=== PATIENT | male | born 1965 | race African-American/Black ===

== ENCOUNTER 2016-05-01 13:30 | Emergency (ER) | payer MEDICAID ==
[~2016-05-01] VITALS: Ht 177.8 cm; Wt 79.0 kg
[2016-05-01] MEDS ORDERED: KETOROLAC 60MG/2ML VIAL IM ONE (16:00)
[2016-05-01 16:02] VITALS: BP 127/76
== END 2016-05-01 16:50 | disposition home or self-care (01) ==
LOC: ER 14:17
DX: M25.562 Pain in left knee (principal); J45.909 Unspecified asthma, uncomplicated; F17.210 Nicotine dependence, cigarettes, uncomplicated; F12.10 Cannabis abuse, uncomplicated; Z88.8 Allergy status to other drugs, medicaments and biological substances; W10.8XXA Fall (on) (from) other stairs and steps, initial encounter; Y92.89 Other specified places as the place of occurrence of the external cause
CPT/HCPCS: 96372; 99283; J1885; L1830

== ENCOUNTER 2016-06-06 14:52 | Emergency (ER) | payer MEDICAID ==
[~2016-06-06] VITALS: Ht 177.8 cm; Wt 84.0 kg
[2016-06-06 22:15] VITALS: BP 124/61
[2016-06-06] MEDS ORDERED: KETOROLAC 60MG/2ML VIAL IM ONE (22:30)
== END 2016-06-06 22:56 | disposition left against medical advice (07) ==
LOC: ER 22:10
DX: M25.562 Pain in left knee (principal); M54.2 Cervicalgia; J45.909 Unspecified asthma, uncomplicated; F17.210 Nicotine dependence, cigarettes, uncomplicated; F12.10 Cannabis abuse, uncomplicated; Z88.8 Allergy status to other drugs, medicaments and biological substances
CPT/HCPCS: 99282

== ENCOUNTER 2016-06-07 03:27 | Emergency (ER) | payer MEDICAID ==
[~2016-06-07] VITALS: Ht 185.4 cm; Wt 79.0 kg
[2016-06-07] MEDS ORDERED: IPRATROPIUM/ALBUTEROL 0.5-3(2.5)MG/3ML NEB HHN ONE (07:45)
[2016-06-07 08:02] LABS: BASOPHILS % 1.4 % (0.0-2.0); EOSINOPHILS % 2.4 % (0.0-5.0); HEMATOCRIT. 44.4 % (42.0-52.0); HEMOGLOBIN. 14.6 g/dL (14.0-18.0); LYMPHOCYTES % 40.3 % (20.0-50.0); MEAN CORPUSCULAR HEMOGLOBIN 28.3 pg (28.0-32.0); MEAN CORPUSCULAR VOLUME 85.7 fL (80.0-94.0); MEAN PLATELET VOLUME 8.1 fl (7.4-10.4); MONOCYTES % 7.9 % (2.0-8.0); PLATELET 233 x1000/uL (130-400); RED BLOOD CELL COUNT 5.18 mill/uL (4.7-6.1); RED CELL DISTRIBUTION WIDTH 14.9 % (11.6-14.6); WHITE BLOOD COUNT 4.6 x1000/uL (4.5-11.0)
[2016-06-07 08:08] LABS: INR 1.1; PROTHROMBIN TIME 11.2 sec
[2016-06-07 08:14] LABS: ALANINE AMINOTRANSFERASE 24 IU/L (13-61); ANION GAP 11; CALCIUM 9.4 mg/dL (8.5-10.1); CARBON DIOXIDE 28 mEq/L (21-32); CHLORIDE 107 mEq/L (98-107); INDEX HEMOLYSI 1 (1-3); INDEX ICTERIC 1 (1-4); INDEX LIPEMIC 1 (1-3); LIPASE 181 IU/L (73-393); UREA NITROGEN BLOOD 22 mg/dL (7-21); eGFR > 60 mL/min (>60)
[2016-06-07 10:44] LABS: CLARITY URINE CLEAR (CLEAR); COLOR URINE YELLOW (YELLOW); GLUCOSE URINE NEGATIVE (NEGATIVE); KETONES URINE 1+ (NEGATIVE); LEUKOCYTE ESTERASE URINE NEGATIVE (NEGATIVE); NITRITE URINE NEGATIVE (NEGATIVE); OCCULT BLOOD URINE NEGATIVE (NEGATIVE); PROTEIN URINE NEGATIVE (NEGATIVE); SPECIFIC GRAVITY URINE 1.029 (1.005-1.030)
[2016-06-07 10:54] LABS: *AMPHETAMINES SCREEN URINE NEGATIVE (NEGATIVE); *BARBITURATES SCREEN URINE NEGATIVE (NEGATIVE); *BENZODIAZEPINES SCREEN URINE NEGATIVE (NEGATIVE); *COCAINE SCREEN URINE NEGATIVE (NEGATIVE); CANNABINOID URINE SCREEN PRESUMTIVE POSITIVE (NEGATIVE); ECSTASY MDMA SCREEN URINE NEGATIVE (NEGATIVE); METHADONE URINE SCREEN NEGATIVE (NEGATIVE); OPIATES URINE SCREEN NEGATIVE (NEGATIVE); PHENCYCLIDINE URINE SCREEN NEGATIVE (NEGATIVE)
[2016-06-07 13:20] VITALS: BP 126/72
== END 2016-06-07 15:00 | disposition left against medical advice (07) ==
LOC: ER 07:25
DX: B34.9 Viral infection, unspecified (principal); J45.909 Unspecified asthma, uncomplicated; F17.210 Nicotine dependence, cigarettes, uncomplicated; F12.10 Cannabis abuse, uncomplicated; Z88.8 Allergy status to other drugs, medicaments and biological substances
CPT/HCPCS: 36415; 71010; 80053; 80305; 81003; 83690; 85025; 85610; 93005; 94640; 99285; J7620

== ENCOUNTER 2016-08-12 22:21 | Emergency (ER) | payer SELFPAY ==
[~2016-08-12] VITALS: Ht 175.3 cm; Wt 80.0 kg
[2016-08-13] MEDS ORDERED: IBUPROFEN 600MG TABLET PO ONE (01:00)
[2016-08-13 02:45] VITALS: BP 96/66
== END 2016-08-13 02:45 | disposition home or self-care (01) ==
LOC: ER 22:21
DX: M25.562 Pain in left knee (principal); G89.29 Other chronic pain; M54.9 Dorsalgia, unspecified; M25.511 Pain in right shoulder; R03.0 Elevated blood-pressure reading, without diagnosis of hypertension; Z88.8 Allergy status to other drugs, medicaments and biological substances; F17.210 Nicotine dependence, cigarettes, uncomplicated
CPT/HCPCS: 99282

== ENCOUNTER 2016-11-16 03:43 | Emergency (ER) | payer MEDICAID ==
[~2016-11-16] VITALS: Ht 180.3 cm; Wt 74.0 kg
[2016-11-16 11:12] VITALS: BP 112/80
== END 2016-11-16 11:50 | disposition left against medical advice (07) ==
LOC: ER 03:43
DX: M54.2 Cervicalgia (principal); Z53.21 Procedure and treatment not carried out due to patient leaving prior to being seen by health care provider

== ENCOUNTER 2017-04-05 23:48 | Emergency (ER) | payer MEDICAID ==
[~2017-04-05] VITALS: Ht 180.3 cm; Wt 86.4 kg
[2017-04-06] MEDS ORDERED: KETOROLAC 60MG/2ML VIAL IM ONE (03:30)
[2017-04-06] MEDS ORDERED: DIAZEPAM 5 MG TABLET PO ONE (03:30)
[2017-04-06 05:20] VITALS: BP 124/88
== END 2017-04-06 06:28 | disposition home or self-care (01) ==
LOC: ER 23:48
DX: M62.838 Other muscle spasm (principal); M54.9 Dorsalgia, unspecified; G89.29 Other chronic pain; R20.0 Anesthesia of skin; F17.200 Nicotine dependence, unspecified, uncomplicated; F12.10 Cannabis abuse, uncomplicated
CPT/HCPCS: 99283; J1885; Z7610

== ENCOUNTER 2018-11-27 20:54 | Emergency (ER) | payer MEDICAID ==
[~2018-11-27] VITALS: Ht 180.3 cm; Wt 78.0 kg
[2018-11-27] MEDS ORDERED: SODIUM CHLORIDE 0.9% 1,000 ML IV ONE (23:36)
[2018-11-28 00:29] LABS: BASOPHILS % 0.7 % (0.0-2.0); EOSINOPHILS % 3.1 % (0.0-5.0); HEMATOCRIT. 38.1 % (42.0-52.0); HEMOGLOBIN. 12.6 g/dL (14.0-18.0); MEAN CORPUSCULAR HEMOGLOBIN 29.1 pg (28.0-32.0); MEAN CORPUSCULAR VOLUME 87.6 fL (80.0-94.0); MEAN PLATELET VOLUME 8.4 fl (7.4-10.4); MONOCYTES % 8.2 % (2.0-8.0); PLATELET 181 x1000/uL (130-400); RED BLOOD CELL COUNT 4.35 mill/uL (4.7-6.1); RED CELL DISTRIBUTION WIDTH 15.2 % (11.6-14.6)
[2018-11-28 00:30] LABS: CHLORIDE 109 mEq/L (98-107)
[2018-11-28 00:31] LABS: PROTHROMBIN TIME 10.6 sec (9.6-11.0)
[2018-11-28 03:45] VITALS: BP 118/70
== END 2018-11-28 03:50 | disposition home or self-care (01) ==
LOC: ER 20:54
DX: K62.5 Hemorrhage of anus and rectum (principal); F12.10 Cannabis abuse, uncomplicated; J45.909 Unspecified asthma, uncomplicated; Z88.8 Allergy status to other drugs, medicaments and biological substances
CPT/HCPCS: 36415; 74018; 99284; J7030

== ENCOUNTER 2019-04-16 03:19 | Emergency (ER) | payer MEDICAID ==
[~2019-04-16] VITALS: Ht 185.4 cm; Wt 78.0 kg
[2019-04-16] MEDS ORDERED: IBUPROFEN 600MG TABLET PO ONE (05:00)
[2019-04-16 06:19] VITALS: BP 115/74
== END 2019-04-16 06:20 | disposition home or self-care (01) ==
LOC: ER 04:04
DX: S49.82XA Other specified injuries of left shoulder and upper arm, initial encounter (principal); M79.642 Pain in left hand; M25.532 Pain in left wrist; F20.9 Schizophrenia, unspecified; F31.9 Bipolar disorder, unspecified; V76.4XXA Person boarding or alighting from bus injured in collision with other nonmotor vehicle, initial encounter; Y93.9 Activity, unspecified; Y92.410 Unspecified street and highway as the place of occurrence of the external cause
CPT/HCPCS: 73080; 73110; 73130; 99284

== ENCOUNTER 2019-11-21 22:12 | Emergency (ER) | payer MEDICAID ==
[~2019-11-21] VITALS: Ht 182.9 cm; Wt 71.0 kg
[2019-11-21] MEDS ORDERED: IBUPROFEN 600MG TABLET PO STA (23:21)
[2019-11-21 23:57] VITALS: BP 113/64
== END 2019-11-21 23:58 | disposition home or self-care (01) ==
LOC: ER 22:12
DX: K08.89 Other specified disorders of teeth and supporting structures (principal); K02.9 Dental caries, unspecified; F31.9 Bipolar disorder, unspecified; F20.9 Schizophrenia, unspecified; Z88.8 Allergy status to other drugs, medicaments and biological substances
CPT/HCPCS: 99283

== ENCOUNTER 2021-09-28 19:38 | Emergency (ER) | payer MEDICAID ==
[~2021-09-28] VITALS: Ht 172.7 cm; Wt 77.0 kg
[2021-09-28 19:52] VITALS: BP 103/58
[2021-09-29] MEDS ORDERED: AMOXICILLIN/POTASSIUM CLAVULANATE 875/125MG TAB PO ONE (02:30)
[2021-09-29] MEDS ORDERED: KETOROLAC 15MG/ML VIAL IM ONE (02:30)
[2021-09-29] MEDS ORDERED: NAPR500T7 MT (03:17)
[2021-09-29] MEDS ORDERED: AMOX1TAB16 MT (03:17)
== END 2021-09-29 03:41 | disposition home or self-care (01) ==
LOC: ER 19:38
DX: K04.7 Periapical abscess without sinus (principal); F31.9 Bipolar disorder, unspecified; E11.9 Type 2 diabetes mellitus without complications; F20.9 Schizophrenia, unspecified; F12.10 Cannabis abuse, uncomplicated
CPT/HCPCS: 82962; 96372; 99283; J1885

== ENCOUNTER 2021-12-24 02:44 | Emergency (ER) | payer MEDICAID ==
[~2021-12-24] VITALS: Ht 180.3 cm; Wt 69.2 kg
[~2021-12-24 02:44] MED LIST: AMOX1TAB16 MT; NAPR500T7 MT
[2021-12-24] MEDS ORDERED: NAP5EC MT (06:36)
[2021-12-24] MEDS ORDERED: KETOROLAC 30MG/ML VIAL IM ONE (06:45)
[2021-12-24 07:15] VITALS: BP 112/58
== END 2021-12-24 07:22 | disposition home or self-care (01) ==
LOC: ER 02:44
DX: M25.562 Pain in left knee (principal); G89.29 Other chronic pain; F12.10 Cannabis abuse, uncomplicated
CPT/HCPCS: 99282; J1885

== ENCOUNTER 2021-12-31 02:18 | Emergency (ER) | payer MEDICAID ==
[~2021-12-31] VITALS: Ht 180.3 cm; Wt 82.0 kg
[~2021-12-31 02:18] MED LIST changes: +NAP5EC MT
[2021-12-31 02:54] VITALS: BP 112/73
[2021-12-31] MEDS ORDERED: ALBUTEROL (0.083%) 2.5MG/3ML NEB HHN ONE (08:15)
[2021-12-31] MEDS ORDERED: ACETAMINOPHEN 325MG TABLET PO ONE (08:15)
[2021-12-31] MEDS ORDERED: P50 MT (08:45)
[2021-12-31] MEDS ORDERED: ALBU6.7H3 INH (08:45)
[2021-12-31] MEDS ORDERED: MELO-105 MT (08:45)
== END 2021-12-31 09:12 | disposition home or self-care (01) ==
LOC: ER 02:50
DX: M17.11 Unilateral primary osteoarthritis, right knee (principal); F12.10 Cannabis abuse, uncomplicated; J45.901 Unspecified asthma with (acute) exacerbation; Z88.8 Allergy status to other drugs, medicaments and biological substances
CPT/HCPCS: 71045; 73562; 94640; 99284; Z7610